=== PATIENT | male | born 1965 | race Caucasian/White ===

== ENCOUNTER 2020-07-28 10:43 | Inpatient (IN) | payer OTHER ==
[~2020-07-28] VITALS: Ht 165.1 cm; Wt 69.5 kg
[2020-07-28 11:22] LABS: BASOPHIL % 0.4 % (0-2); PLATELET COUNT 370 x10^3mcL (130-400); RED CELL DISTRIBUTION WIDTH 12.9 % (11.5-14.5)
[2020-07-28 11:25] LABS: CALCIUM 8.3 mg/dL (8.5-10.1); CARBON DIOXIDE 27.6 mmol/L (21-32); CHLORIDE SERUM 100 mmol/L (98-107); CREATININE SERUM 0.9 mg/dL (0.7-1.3); GFR1 > 60 mL/min; GLUCOSE SERUM 111 mg/dL (74-106); POTASSIUM SERUM 3.7 mmol/L (3.5-5.1); SODIUM SERUM 135 mmol/L (136-145)
[2020-07-28 11:29] LABS: ALKALINE PHOSPHATASE 116 U/L (46-116); ALT/SGPT 47 U/L (16-63); AST/SGOT 26 U/L (15-37); C REACTIVE PROTEIN 8.8 mg/dL (<=0.9); LACTIC DEHYDROGENASE (LDH) 166 U/L (100-190); TOTAL PROTEIN, SERUM 6.3 g/dL (6.4-8.2)
[2020-07-28 11:32] LABS: ALBUMIN 2.4 g/dL (3.4-5.0)
[2020-07-28 11:34] LABS: microscopic required? NO
--- NOTE | 2020-07-28 11:40 | NUR ---
PATIENT BIBA FROM HOME, C/O SOB, COUGH, BODYACHES, SORE THROAT, TATICLE FEVER, CHILLS, LOSS OF SMELL/TASTE X1 WEEK. PATIENT STATES HE WAS TESTED FOR COVID ON Wednesday07/26/20, NO FINAL RESULTS YET. PATIENT ALSO DENIES ANY TRAVELING, OR ANY OTHER SYMPTOMS AT THIS TIME. PATIENT AAOX4, RESPIRATIONS E/U, NAD NOTED AT THIS TIME. PATIENT GOWNED, SAFETY PREACUTIONS IN PLACE, MSE DONE BY DR. MARQUEZ, LAB/RT/EKG AT [facility] AT THIS TIME, CALL LIGHT WITHIN REACH.
[2020-07-28 11:41] LABS: urine erythrocyte NEGATIVE (NEGATIVE)
--- NOTE | 2020-07-28 11:55 | NUR ---
XRAY AT BEDSIDE AT THIS TIME
--- NOTE | 2020-07-28 12:26 | NUR ---
PATIENT SITTING IN BED AWAKE, NAD NOTED. POSITION HEAD OF BED TO COMFORT. CALL LIGHT WITHIN REACH.
--- NOTE | 2020-07-28 12:57 | NUR ---
PATIENT STANDING IN ROOM, NAD NOTED. PROVIDED PATIENT WITH JELLO, APPLE SAUCE AND DIET SPRIT. CALL LIGHT WITHIN REACH.
--- NOTE | 2020-07-28 13:38 | NUR ---
DR. MARQUEZ AT BEDSIDE DISCUSSIG RESULTS AND TREATMENT.
--- NOTE | 2020-07-28 13:50 | NUR ---
PATIENT BELONGING INCLUDE: CLOTHES, SHOES, EYE GLASSES AND CELL PHONE
--- NOTE | 2020-07-28 15:27 | NUR ---
REPORT GIVEN TO ROSE FERRARA TO ASSUME PATIENT CARE IN TELE FLOOR, ALL QUESTIONS ADDRESSED. INOFRMED HER PER PHARMACY [facility] ORDER NEEDS TO BE CHANGED TO BE GIVEN TODAY.
--- NOTE | 2020-07-28 15:35 | NUR ---
RECIEVED REPORT FROM [place] FERRARA.
--- NOTE | 2020-07-28 15:37 | NUR ---
RECEIVED PT FROM ED VIA [facility], CAME IN DUE TO COUGH. AAOX4. DENIES HEADACHE/DIZZINESS. ABLE TO FOLLOW COMMANDS. NO SOB NOTED, O2 SAT=99% ON RA. STATED THAT HE HAS PRODUCTIVE COUGH, ABLE TO EXPECTORATE SCANT AMOUNT OF YELLOW PHLEGM. DENIES CHEST PAIN/PRESSURE, SR ON THE MONITOR. STATED THAT HE HAD 2 EPISODES OF LOOSE STOOLS TODAY AND VOMITED ROUTE DELIVERER. DENIES ADBOMINAL PAIN/ NAUSEA AT THIS TIME. VOIDS. IV SITE ON THE RAC IS PATENT AND INTACT. SIDE RAILS UPX2. CALL LIGHT ON REACH. ENDORSED TO PRIMARY NURSE RUTH FOR CONTINUITY OF CARE
[2020-07-28 15:54] VITALS: BP 129/81
[2020-07-28 16:03] VITALS: Ht 165.1 cm; Wt 69.5 kg
--- NOTE | 2020-07-28 16:52 | NUR ---
ABEL (BROTHER) UPDATED ON PT'S CONDITION.
--- NOTE | 2020-07-28 18:39 | NUR ---
ALL NEEDS MET THROUGH OUT THE SHIFT. NO SIGNS OF ACUTE CHANGE OR DISTRESS NOTED. WILL ENDORSE CARE TO ONCOMING SHIFT NURSE, AND WILL CONTINUE TO MONITOR.
[2020-07-28 19:22] VITALS: BP 115/79
--- NOTE | 2020-07-28 23:30 | NUR ---
PT C/O IV BOTHERING HIM AND CAUSING PAIN. NO SWELLING OR REDNESS NOTED. REMOVED IV TO YING. NEW IV PLACED TO LEFT AC 20 G.TOLERATED WELL. CALL LIGHT WITHIN REACH. SNACKS GIVEN WELL A NORCO PER PT REQUEST
[2020-07-29 04:28] VITALS: BP 116/77
[2020-07-29 07:32] LABS: ALKALINE PHOSPHATASE 115 U/L (46-116); ALT/SGPT 46 U/L (16-63); AST/SGOT 26 U/L (15-37); BILIRUBIN TOTAL 0.34 mg/dL (0.20-1.00); CALCIUM 8.2 mg/dL (8.5-10.1); CARBON DIOXIDE 30.7 mmol/L (21-32); CHLORIDE SERUM 102 mmol/L (98-107); GFR1 > 60 mL/min; GLUCOSE SERUM 103 mg/dL (74-106); POTASSIUM SERUM 4.3 mmol/L (3.5-5.1); SODIUM SERUM 137 mmol/L (136-145); TOTAL PROTEIN, SERUM 6.2 g/dL (6.4-8.2)
[2020-07-29 07:36] LABS: ALBUMIN 2.2 g/dL (3.4-5.0)
[2020-07-29 07:37] LABS: BASOPHIL % 0.4 % (0-2); PLATELET COUNT 399 x10^3mcL (130-400); RED CELL DISTRIBUTION WIDTH 12.7 % (11.5-14.5)
[2020-07-29 08:37] VITALS: BP 102/64
[2020-07-29 12:32] VITALS: BP 107/80
[2020-07-29 17:00] VITALS: BP 125/75
--- NOTE | 2020-07-29 19:04 | NUR ---
PATIENT CURRENTLY AWAKE ALERT AND ORIENTED X 4. PATIENT REMAINS ON HIGH FLOW OXYGEN. FIO2 AT 100%, 4O LITER, PATIENT IS ON 15 LITER NON REBREATHER MASK. PATIENT DESATRUATES TO 80'S PERIODICALLY UPON EXERTION. PATIENT CONTINUES TO RECIEVE DEXAMETHASONE IV. NO NEW COMPLAINTS AT THIS TIME. WILL ENDORSE ALL FURTHER CARE TO [facility] NURSE.
--- NOTE | 2020-07-29 19:07 | NUR ---
CURRENTLY PENDING PCR TEST RESULTS PATIENT REMAINS ON ROOM AIR AND ISOLATION PRECAUTIONS FOR COVID-19. PATIENT IS AFEBRILE. NO NEW COMPLAINTS AT THIS TIME.
--- NOTE | 2020-07-29 19:15 | NUR ---
RECEIVED PT FROM AM NURSE, AA/O X 4, ABLE TO MAKE NEEDS KNOWN, DENIES HEADACHE/ DIZZINESS. TELE MONITOR #[id number] NSR, HR 83 BPM, DENIES CHEST PAIN/ CHEST PRESSURE. DIMINISHED LUNG SOUNDS, RESPIRATIONS E/U ON RA, DENIES SOB, NO RESPIRATORY DISTRESS AT THIS TIME. ACTIVE BS X 4 QUADS, DENIES N/V/D. SKIN INTACT, DENIES PAIN, IV TO LAC INTACT, FLUSHING WELL, NO ERYTHEMA/ NO INFILTRATION. SL. NO ACUTE DISTRESS AT THIS TIME. ALL NEEDS MET AND ALL CONCERNS ADDRESSED. CALL BUTTON WITHIN REACH, WILL CONTINUE TO MONITOR.
[2020-07-29 21:04] VITALS: BP 125/78
--- NOTE | 2020-07-29 21:22 | NUR ---
TEMP OF 101.1 PRN TYLENOL PO GIVEN PER EMAR. ICE PACK OFFERED WELL. SODA PROVIDED PER PT REQUEST. NO OTHER CONCERNS AT THIS TIME.
--- NOTE | 2020-07-29 23:36 | NUR ---
TEMP RE-CHECKED AND IS WNL, 97.5. PT DENIES PAIN, NO ACUTE DISTRESS AT THIS TIME. CALL BUTTON WITHIN REACH, WILL CONTINUE TO MONITOR.
--- NOTE | 2020-07-30 05:20 | NUR ---
PT SLEPT IN INTERVALS THROUGHOUT THE NIGHT, BUT EASILY AROUSABLE. RESPIRATIONS E/U ON RA, DENIES SOB. DENIES PAIN. NO ACUTE CHANGES OVERNIGHT. CALL BUTTON WITHIN REACH, WILL ENDORSE CARE TO AM NURSE.
[2020-07-30 05:57] VITALS: BP 118/70
[2020-07-30 07:54] LABS: ALKALINE PHOSPHATASE 118 U/L (46-116); ALT/SGPT 41 U/L (16-63); AST/SGOT 24 U/L (15-37); BILIRUBIN TOTAL 0.27 mg/dL (0.20-1.00); CALCIUM 8.6 mg/dL (8.5-10.1); CARBON DIOXIDE 30.5 mmol/L (21-32); CHLORIDE SERUM 103 mmol/L (98-107); CREATININE SERUM 0.9 mg/dL (0.7-1.3); GFR1 > 60 mL/min; GLUCOSE SERUM 105 mg/dL (74-106); POTASSIUM SERUM 4.5 mmol/L (3.5-5.1); SODIUM SERUM 138 mmol/L (136-145); TOTAL PROTEIN, SERUM 6.4 g/dL (6.4-8.2)
[2020-07-30 07:59] LABS: ALBUMIN 2.3 g/dL (3.4-5.0)
[2020-07-30 09:17] VITALS: BP 117/73
--- NOTE | 2020-07-30 10:21 | NUR ---
PATIENT IS A 55 YEAR OLD MALE THAT WAS ADMITTED TO [place] FOR FEVER, SORE THROAT, COUGH 5 DAYS, AND SON WERE PREVIOUSLY COVID +. JONO ON ADMISSION WAS NEGATIVE, PCR IS PENDING. CXR- MULTIFOCAL PNA WITH LIKLEY COVID 19 PNA OPACTITIES. PATIENT IS ALERT AND ORIENTED X4, COMPLAINING OF HEADACHE THIS AM GAVE NORCO PER REQUEST. PAIN 10/10. PATIENT IV TO LAC IS INTACT AND PATENT. NO S/S OF DISTRESS AT THIS TIME.
[2020-07-30 12:30] VITALS: BP 140/71
[2020-07-30 13:49] LABS: BASOPHIL % 0.6 % (0-2); RED CELL DISTRIBUTION WIDTH 13.1 % (11.5-14.5)
[2020-07-30 15:05] LABS: PLATELET COUNT 511 x10^3mcL (130-400)
[2020-07-30] MEDS ORDERED: TES100 PO (15:28)
[2020-07-30] MEDS ORDERED: GUAIFENESI100 MG/5 M PO (15:29)
[2020-07-30] MEDS ORDERED: DECADRON6 MG PO (15:30)
[2020-07-30] MEDS ORDERED: ELIQUIS2.5 MG PO (15:31)
[2020-07-30 15:53] VITALS: BP 118/75
--- NOTE | 2020-07-30 16:01 | NUR ---
PATIENT DC ORDER PLACED FROM DR CARRINGTON FROM [facility], MEDICATIONS SENT TO [facility], WILL HAVE PATIENT SIGN THE DC FORMS AND THEN ARRANGE A RIDE SO PATIENT CAN GO HOME TODAY. PATIENT WAS EDUCATED ON SOCIAL DISTANCING, TO ENSURE HIS SON AND ARE NOT EXPOSED AGAIN.
--- NOTE | 2020-07-30 18:10 | NUR ---
PATIENT WILL DC HOME, PAPERWORK SIGNED, AT THIS TIME HIS FRIEND WAS SUPPOSE TO PICK HIM UP, THERE IS NO RIDE FOR HIM TO LEAVE AT THIS TIME. HE SAID THE DRUM MAKER SAID IT WOULD BE AT LEAST ANOTHER HOUR. INFORMED CHARGE NURSE SARMAD. TELEMETRY STILL ON PENDING DC.
== END 2020-07-30 18:49 | disposition home or self-care (01) | DRG 137 ==
LOC: ED 10:43 → DU 13:51
PROVIDERS: Emergency Medicine; ADMIT Internal Medicine; ATTEND Internal Medicine
DX: U07.1 COVID-19 (principal); J12.89 Other viral pneumonia; J45.909 Unspecified asthma, uncomplicated; E88.09 Other disorders of plasma-protein metabolism, not elsewhere classified
CPT/HCPCS: 36600; 83880; 85378; 87804; G0378; J0456; J0696; J1650; J7030; U0003